=== PATIENT | male | born 1975 | race Two or more races ===

== ENCOUNTER 2023-03-15 19:48 | Emergency (ER) | payer BC, OTHER ==
[~2023-03-15] VITALS: Ht 180.3 cm; Wt 109.1 kg
[2023-03-15 20:00] VITALS: BP 138/96; PULSE 81; RESP 17; O2SAT 98
[2023-03-15] MEDS ORDERED: HYDROcodone-ACET 10/325MG TAB PO ONE (22:15)
== END 2023-03-15 23:52 | disposition left against medical advice (07) ==
LOC: ER 19:48
DX: S16.1XXA Strain of muscle, fascia and tendon at neck level, initial encounter (principal); S20.212A Contusion of left front wall of thorax, initial encounter; S00.03XA Contusion of scalp, initial encounter; Y08.89XA Assault by other specified means, initial encounter; Y93.89 Activity, other specified; Y92.481 Parking lot as the place of occurrence of the external cause; Y99.8 Other external cause status
CPT/HCPCS: 70450; 71101; 72125